=== PATIENT | female | born 1985 | race Caucasian/White ===

== ENCOUNTER 2019-08-26 10:51 | Inpatient (IN) | payer OTHER ==
[2019-08-26] MEDS ORDERED: CITRIC ACID/SODIUM CITRATE 30 ML UNIT-DOSE CUP PO ONE ×2 (11:30→14:45)
[2019-08-26] MEDS ORDERED: ELECTROLYTE-148 SOLN 1,000 ML IV ONE (11:30)
[2019-08-26] MEDS ORDERED: ELECTROLYTE-148 SOLN 1,000 ML IV SCH ×2 (11:30→14:45)
[2019-08-26 11:45] VITALS: BMI 25.3
[2019-08-26] MEDS ORDERED: morphine SULFATE/PF 0.5 MG/ML (2cc Syringe - QUVA) ONE (13:16)
[2019-08-26] MEDS ORDERED: ePHEDrine SULFATE 50 MG/1 ML AMPULE ONE (13:17)
[2019-08-26] MEDS ORDERED: OXYTOCIN 20 UNITS in 0.9% NS 20 UNIT/1,000 ML INFUS.BAG IV ONE ×2 (13:19→15:48)
[2019-08-26] MEDS ORDERED: OXYTOCIN 10 UNITS/ML VIAL ONE (13:20)
[2019-08-26] MEDS ORDERED: IBUPROFEN 800 MG/8 ML IJ IVPB PRN (14:46)
[2019-08-26] MEDS ORDERED: oxyCODONE HCL 5 MG TABLET PO PRN ×2 (14:46)
[2019-08-26] MEDS ORDERED: METHYLERGONOVINE MALEATE 0.2 MG/1 ML AMP IM PRN (14:46)
[2019-08-26] MEDS: OXYTOCIN 20 UNITS in 0.9% NS 20 UNIT/1,000 ML INFUS.BAG IV SCH (15:41)
[2019-08-26] MEDS ORDERED: ONDANSETRON 4 MG/2 ML VIAL IVPB PRN (17:23)
--- NOTE | 2019-08-26 18:01 | HP ---
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: Alzheimer's, CVA, Dementia, Migraine, Multiple Sclerosis, Peripheral Neuropathy, Parkinson's, Seizure, Syncope, TIA, Vertigo, Other Cardiovascular: No: AFIB, Aneurysm, Aortic Insufficiency, Aortic Stenosis, CAD, CHF, Deep Vein Thrombosis, HTN, Hyperlipdemia, CO, Mitral Insufficiency, Mitral Stenosis, Murmur, Pulmonary Hypertension, Other Pulmonary: No: Asthma, Bronchitis, Cancer, COPD, O2 Dependent, Pneumonia, Previously Intubated, Pulmonary Embolus, Pulmonary Fibrosis, Sleep Apnea, Other Gastrointestinal: No: Ascites, Cancer, Constipation, Crohn's Disease, Diverticulitis, Diverticulosis, Esophageal Varices, Gastritis, GERD, GI Bleed, Hemorrhoids, Hiatal Hernia, Inflamatory Bowel Disease, Irritable Bowel Disease, Pancreatitis, Peptic Ulcer Disease, Ulcerative Colitis, Other Hepatobiliary: No: Cirrhosis, Cholelithiasis, Cholecystitis, Choledocholithiasis , Hepatitis A, Hepatitis B, Hepatitis C, Other Renal/: No: Renal Failure, Renal Inusuff, BPH, Cancer, Hematuria, Hemodialysis , Neurogenic Bladder, Renal Calculi, UTI, Other Reproductive: No: Ectopic , Endometriosis, Fibroids, PID, Polycystic Ovary Syndrome, Postmenopausal, Other ...: 2 ...Para: 1 ...Term: 1 ...: 0 ...Spon : 0 ...Induced : 0 ...Multiple Gestation: 0 ... Weeks Gestation by Dates: 39 ...EDC by Dates: 09/02/19 Heme/Onc: No: Anemia, B12 Deficiency, Bleeding Disorder, Cancer, Current Chemotherapy, Current Radiation Therapy, Hemochromatosis, Hypercoaguable State, Myeloproliferative Synd, Sickle Cell Disease, Sickle Cell Trait, Thrombocytopenia, Other Infectious Disease: No: AIDS, C-Diff, Herpes Zoster, HIV, MRSA, STD's, Tuberculosis, VREF, Other Psych: No: Addictions, Anxiety, Bipolar, Depression, Panic, Psychosis, Schizophrenia, Other Musculoskeletal: No: Bursitis, Chronic low back pain, Hemiparesis, Hemiplegia, Osteoarthritis, Paraplegia, Other Rheumatology: No: Fibromyalgia, Gout, Lupus, Rheumatoid Arthritis, Sarcoidosis, Vasculitis, Other ENT: No: Allergic Rhinitis, Sinusitis, Other Endocrine: No: [place]'s Disease, [place]'s Disease, Diabetes Insipidus, Diabetes Mellitus, Hyperparathyroidism, Hyperthyroidism, Hypothyroidism, Osteopenia, SIADH, Other Dermatology: No: Basal Cell, Cellulitis, Eczema, Melanoma, Psoriasis, Squamous Cell, Other - Past Surgical History Past Surgical History: Yes: Hx Myomectomy: No Hx Transabdominal Cerclage: No - Advance Directives Advance Directives: Yes: Living Will - Smoking History Smoking history: Never smoked Have you smoked in the past 12 months: No - Alcohol/Substance Use Hx Alcohol Use: No History of Substance Use: reports: None - Social History Usual Living Arrangement: Yes: With Significant Other Do you think of yourself as: Straight/Heterosexual ADL: Independent History of Recent Travel: No Home Medications - Allergies Allergies/Adverse Reactions: Allergies Allergy/AdvReac Type Severity Reaction Status Date / Time No Known Allergies Allergy Verified 08/26/19 11:22 - Home Medications Home Medications: Ambulatory Orders Vitamins (Sjr) - 1 tab PO DAILY 08/26/19 Family Medical History Family History: Denies Review of Systems - Review of Systems Constitutional: reports: No Symptoms Eyes: reports: No Symptoms HENT: reports: No Symptoms Neck: reports: No Symptoms Cardiovascular: reports: No Symptoms Respiratory: reports: No Symptoms Gastrointestinal: reports: No Symptoms Genitourinary: reports: No Symptoms Breasts: reports: No Symptoms Reported Musculoskeletal: reports: No Symptoms Integumentary: reports: No Symptoms Neurological: reports: No Symptoms Endocrine: reports: No Symptoms Hematology/Lymphatic: reports: No Symptoms Psychiatric: reports: No Symptoms Physical Exam - Maternity Vital Signs: Vital Signs Temperature 97.3 F L 08/26/19 16:00 Pulse Rate 70 08/26/19 16:00 Respiratory Rate 18 08/26/19 17:00 Blood Pressure 111/69 08/26/19 16:00 O2 Sat by Pulse Oximetry (%) 100 08/26/19 15:45 Constitutional: Yes: Well Nourished, No Distress, Calm Eyes: Yes: WNL, Conjunctiva Clear, EOM Intact HENT: Yes: WNL, Atraumatic, Normocephalic Neck: Yes: WNL, Supple, Trachea Midline Cardiovascular: Yes: WNL, Regular Rate and Rhythm Lungs: Clear to auscultation Breast(s): Yes: WNL - Abdominal Exam/OB Fundal Height: 38 Number of Fetuses: Single Presentation: Vertex Contractions: Yes Regularity: Irregular Intensity: Unaware Monitor Mode: External Heart Rate Location: [facility] Category: I Accelerations: Uniform Decelerations: None - Vaginal Exam/OB Vaginal Bleediing: No Speculum Exam: No Dilatation (cm): 1 Effacement (%): 20 Amniotic Membrane Status: Intact Presentation: Vertex/Position Station: -2 - Physical Exam Musculoskeletal: Yes: WNL Extremities: Yes: WNL Edema: Yes Edema: LUE: 1+, RUE: 1+, LLE: 1+, RLE: 1+ Integumentary: Yes: WNL Deep Tendon Reflex Grade: Normal +2 ...Motor Strength: WNL Psychiatric: Yes: WNL, Alert, Oriented Hemorrhage Risk Assessment - Risk Factors Medium Risk Factors: Yes: Prior , uterine surgery,or multiple laparotomies Risk Score: 1 Risk Level: Medium Risk Assessment/Plan for repeat lt c s
--- NOTE | 2019-08-26 18:05 | OP ---
Operative Note - Note: Operative Date: 08/26/19 Pre-Operative Diagnosis: repeat lt cs Operation: repeat lt c s Findings: same, no adhesion Post-Operative Diagnosis: Same as Pre-op Surgeon: Salvador Gibbs Entry Level Sales Associate: Tyrese Siddiqi Anesthesiologist/IP ARCHITECT: Joy Maurer MD Anesthesia: Spinal Estimated Blood Loss (mls): 500 (no complications ) Operative Report Dictated: Yes
[2019-08-26] MEDS ORDERED: SENNOSIDES/DOCUSATE COMBO (SENNA PLUS) TABLET (UD) PO PRN (22:00)
[2019-08-27] MEDS: OXYTOCIN 20 UNITS in 0.9% NS 20 UNIT/1,000 ML INFUS.BAG IV SCH (00:03)
--- NOTE | 2019-08-27 06:18 | OP ---
DATE OF OPERATION: 08/26/2019 PREOPERATIVE DIAGNOSIS: Repeat low transverse section. POSTOPERATIVE DIAGNOSIS: Repeat low transverse section. PROCEDURE: Repeat low transverse section. SURGEON: Bernardino Pride MD PULLEY MORTISER OPERATOR: STANLEY Potts ANESTHESIOLOGIST: Joy Maurer MD, spinal anesthesia. INDICATIONS: This is a 34-year-old female patient 39 weeks previous history of low transverse section. All the risks and benefits, alternatives explained to the patient. Patient taken to OR for repeat low transverse section. DESCRIPTION OF PROCEDURE: Patient was placed on operating table in supine position. After spinal anesthesia was obtained, patient's abdomen and pelvis were prepped and draped in the usual sterile manner. Pfannenstiel incision was made. Incision was made through the skin and subcutaneous tissue until the fascia was nicked in the midline. The fascia extended bilaterally. Intraperitoneal cavity was entered. Bladder flap was not created. Low transverse segment was entered. Baby was delivered from MEHNAZ position. Baby with cord around the neck x1. Baby was handed over to the livestock handler after umbilical cord was doubly clamped and cut. Placenta was removed. Uterus was closed in a single layer. First layer interlocking Vicryl sutures, good hemostasis. Both gutters were cleaned. Both ovaries, fallopian tubes, uterus were within normal limits. No complications. Patient tolerated the procedure well. Blood loss about 500 mL. No adhesion was encountered. Peritoneum was closed. Fascia was closed. Skin was closed. Transferred to recovery room in stable condition. BERNARDINO PRIDE MD [id number]
[2019-08-27 08:53] LABS: BASO % 0.4 % (0-2.0); EOS % 1.1 % (0-4.5); HEMATOCRIT 29.5 % (32.4-45.2); HEMOGLOBIN 9.7 GM/dL (10.7-15.3); LYMPH % 14.6 % (8-40); MCH 29.6 pg (25.7-33.7); MEAN CELL VOLUME 89.7 fl (80-96); MEAN PLT VOLUME 8.8 fl (7.5-11.1); MONO % 7.9 % (3.8-10.2); PLATELET COUNT 182 K/MM3 (134-434); RBC 3.29 M/mm3 (3.60-5.2); RDW 14.5 % (11.6-15.6); WHITE BLOOD COUNT 8.7 K/mm3 (4.0-10.0)
[2019-08-27] MEDS ORDERED: FLU VACCINE QUAD 60 MCG/0.5 ML (MDV 19-20) IM ONE (10:00)
[2019-08-27] MEDS ORDERED: FLU VACC QS2019-20(6MOS UP)/PF 60 MCG/0.5 ML SYRINGE IM ONE (10:00)
[2019-08-27] MEDS: ENOXAPARIN NA (PORCINE) 40 MG/0.4 ML DISP.SYRIN SQ SCH (10:37)
--- NOTE | 2019-08-27 13:10 | PROC ---
Procedure Note Procedure: Anesthesia post op note POD#1.S/P under spinal.Pat seen and examined. VSS. pain well controlled. No apparent post anesthesia complications.
[2019-08-27] MEDS: SIMETHICONE 80 MG TAB.CHEW (FP) PO PRN ×2 (13:15→19:06)
[2019-08-27] MEDS: IBUPROFEN 600 MG TABLET (FP) PO PRN ×2 (13:15→19:06)
[2019-08-27] MEDS: ACETAMINOPHEN 325 MG TABLET (FP) PO PRN ×2 (13:15→19:06)
[2019-08-27] MEDS ORDERED: BISACODYL 10 MG SUPP.RECT RC PRN (14:46)
--- NOTE | 2019-08-27 18:17 | PN ---
Post Progress Note Post Day: 1 Type of Delivery: Repeat C/S Vital Signs: Vital Signs Temperature 98.4 F 08/27/19 10:00 Pulse Rate 68 08/27/19 10:00 Respiratory Rate 18 08/27/19 12:00 Blood Pressure 94/54 L 08/27/19 10:00 O2 Sat by Pulse Oximetry (%) 100 08/26/19 15:45 Breast Exam: Yes: Soft Uterus: Yes: Fundus Firm, Fundus below umbilicus Incision: Yes: Dressing dry and intact, Sutures intact Abdomen/GI: Yes: Abdomen soft, Passing flatus, Tolerating PO Lochia: Yes: Serosa Lochia, amount: Small Extremities: Yes: Calves non-tender Perineum: Yes: Intact Activity: Ambulating (doing well, no pain, no complications, pt wants to go home tomorrow, will dc pt home tomorrow ) - Labs Labs: CBC WBC 8.7 K/mm3 (4.0-10.0) 08/27/19 08:18 RBC 3.29 M/mm3 (3.60-5.2) L 08/27/19 08:18 Hgb 9.7 GM/dL (10.7-15.3) L 08/27/19 08:18 Hct 29.5 % (32.4-45.2) L D 08/27/19 08:18 MCV 89.7 fl (80-96) 08/27/19 08:18 MCH 29.6 pg (25.7-33.7) 08/27/19 08:18 MCHC 33.0 g/dl (32.0-36.0) 08/27/19 08:18 RDW 14.5 % (11.6-15.6) 08/27/19 08:18 Plt Count 182 K/MM3 (134-434) 08/27/19 08:18 MPV 8.8 fl (7.5-11.1) 08/27/19 08:18 Absolute Neuts (auto) 6.6 K/mm3 (1.5-8.0) 08/27/19 08:18 Neutrophils % 76.0 % (42.8-82.8) 08/27/19 08:18 Lymphocytes % 14.6 % (8-40) 08/27/19 08:18 Monocytes % 7.9 % (3.8-10.2) 08/27/19 08:18 Eosinophils % 1.1 % (0-4.5) 08/27/19 08:18 Basophils % 0.4 % (0-2.0) 08/27/19 08:18 Nucleated RBC % 0 % (0-0) 08/27/19 08:18
--- NOTE | 2019-08-27 18:20 | DS ---
Physical Exam-EDUCATION LIAISON Vital Signs: Vital Signs Temperature 98.4 F 08/27/19 10:00 Pulse Rate 68 08/27/19 10:00 Respiratory Rate 18 08/27/19 12:00 Blood Pressure 94/54 L 08/27/19 10:00 O2 Sat by Pulse Oximetry (%) 100 08/26/19 15:45 Constitutional: Yes: Well Nourished, No Distress, Calm Eyes: Yes: WNL, Conjunctiva Clear, EOM Intact HENT: Yes: WNL, Atraumatic, Normocephalic Neck: Yes: WNL, Supple, Trachea Midline Cardiovascular: Yes: WNL, Regular Rate and Rhythm Respiratory: Yes: WNL, Regular, CTA Bilaterally Gastrointestinal: Yes: WNL, Normal Bowel Sounds, Soft ...Rectal Exam: Yes: WNL Renal/: Yes: WNL Pelvis: Yes: WNL External Genitalia: Yes: Normal Internal Exam Deferred: No Vaginal Exam: Yes: Normal Cervix: Yes: Normal Uterus: Yes: Normal Adnexa: Normal: Bilateral ....Post : Yes: Uterus firm, Uterus non-tender Breast(s): Yes: WNL Musculoskeletal: Yes: WNL Extremities: Yes: WNL Edema: Yes Edema: LUE: 1+, RUE: 1+, LLE: 1+ Integumentary: Yes: WNL Wound/Incision: Yes: Clean/Dry, Well Approximated Neurological: Yes: WNL, Alert, Oriented ...Motor Strength: WNL Psychiatric: Yes: WNL, Alert, Oriented Labs: CBC, BMP 08/27/19 08:18 Delivery - Delivery Type of Anesthesia: Spinal Episiotomy/Laceration: None EBL (cc): 500 Delivery, Single - Stages of Labor Date of Delivery: 08/26/19 Time of Delivery: 13:50 Time Placenta Delivered: 13:51 - Condition of Infant Mold Maker Apprentice/Supervisor [employer] Reservations Present: No Gender: Male Weight: 3.175 kg Position: Left, OA Total Hours ROM (Hrs/Mins): 3min - 1 Minute Total Score: 9 5 Minutes Total Score: 9 - Feeding Plan Initial Plan: Elected not to breastfeed exclusively throughout hospitalization Discharge Summary Problems reviewed: Yes Reason For Visit: REPEAT Procedures: Principal: repeat lt cs Other Procedures: none Hospital Course: uneventful Health Concerns: none Plan of Treatment: oob as much as possible Goals: return to work in 6 weeks Condition: Good - Instructions Diet, Activity, Other Instructions: Physical activity Resume your normal everyday activity as tolerated no heavy lifting or exercise until seen by your surgeon. You may walk unlimited arianna of and climb stairs. You may resume driving the car when you feel safe and comfortable behind the wheel. No sexual activity as instructed. Wound care If you have a bandage, leave it on, and keep dry for 48-72 hours. After that time discard the outer bandage. If they are tapes on the skin under the out of bandage leave them in place. They will peel off in the next 7 to 10 days. Do Not Peel them off. You may shower the day after surgery. If there are tapes present on the skin, you may shower over them. Diet There are no dietary restrictions. Eat healthy, high-fiber foods. Drink 6 to 8 glasses of liquid each day. This will assist in keeping your bowels are regular. Pain management You may take Tylenol or acetaminophen or Ibuprofen (for example, Motrin, Advil etc.) from my pain prescription medication is ordered should be taken as prescribed for moderate to severe pain. Call MD for any of the following:call dr pena for 2 weeks appointment Severe pain not relieved by medication Fever of 101 or higher Excessive bleeding or drainage on dressing Inability to urinate Disposition: HOME - Home Medications Comprehensive Discharge Medication List: Ambulatory Orders Vitamins (Sjr) - 1 tab PO DAILY 08/26/19
[2019-08-28] MEDS: IBUPROFEN 600 MG TABLET (FP) PO PRN (08:02)
[2019-08-28] MEDS: ACETAMINOPHEN 325 MG TABLET (FP) PO PRN (08:02)
[2019-08-28] MEDS: SIMETHICONE 80 MG TAB.CHEW (FP) PO PRN (08:02)
[2019-08-28] MEDS: ENOXAPARIN NA (PORCINE) 40 MG/0.4 ML DISP.SYRIN SQ SCH (09:53)
[2019-08-28 11:55] VITALS: BP 111/69; PULSE 74; TEMP 98.2
--- NOTE | 2019-08-31 19:31 | PATH ---
Surgical Pathology Report Patient Name: OMAR COTO Med. Rec. #: [id number] /Age/Gender: 1985 (Age: 34) / F Account: [id number] Location: [facility] OBS/SALES MANAGER Taken: 08/26/2019 Received: 08/29/2019 Reported: 08/31/2019 Physicians: Salvador Gibbs MD Specimen(s) Received PLACENTA Clinical History 39 weeks repeat Final Diagnosis PLACENTA: THIRD TRIMESTER PLACENTA. TRIVASCULAR CORD. MEMBRANES WITH NO DIAGNOSTIC ABNORMALITIES. Electronically Signed Piotr Molina M.D. Gross Description The specimen is received fresh labeled placenta and is a 462gram, 20 x18 x 2.5cm. placenta with attached membranes and umbilical cord. The attached membranes are glistening, translucent, and insert marginally. The umbilical cord measures 44 cm. in length and averages 1.5 cm. in diameter. The cord inserts centrally, 6 centimeter to the nearest margin. No true knots or strictures are identified. Cut surface of the umbilical cord reveals 3 vessels. Sectioning reveals red-brown, spongy parenchyma. No lesions are identified. Summer Child Caregiver sections are submitted in three cassettes as follows: 1- membrane rolls and umbilical cord; 2-3- full thickness sections of placenta KWS/08/30/2019 sulki/08/30/2019
== END 2019-08-28 12:50 | disposition home or self-care (01) | DRG 788 ==
LOC: JLDR 10:51 → J3W 16:10
PROVIDERS: ADMIT Obstetrics & Gynecology; ATTEND Obstetrics & Gynecology
PROC: 10D00Z1 Extraction of Products of Conception, Low, Open Approach (ICD-10-PCS; principal; 2019-08-26)
DX: O34.211 Maternal care for low transverse scar from previous cesarean delivery (principal); Z3A.39 39 weeks gestation of pregnancy; Z37.0 Single live birth
CPT/HCPCS: 36415; 80053; 85025; 85610; 85730; 86593; 86850; 86900; 86901; 88307-TC; 90686